=== PATIENT | male | born 1995 | race Caucasian/White ===

== ENCOUNTER → 2024-01-06 | Outpatient (CLI) | payer OTHER | LOC: M PLAIMG 08:07 | PROVIDERS: ATTEND Family Medicine | DX: M25.571 Pain in right ankle and joints of right foot (principal) ==

== ENCOUNTER 2025-01-02 03:48 | Emergency (ER) | payer OTHER ==
[2025-01-02 06:00] LABS: PLATELET COUNT, AUTOMATED 362 10^3/uL (150-450)
[2025-01-02 06:16] LABS: AMPHETAMINES LEVEL URINE NEGATIVE (NEGATIVE); BARBITURATES URINE NEGATIVE (NEGATIVE); BENZODIAZEPINES URINE NEGATIVE (NEGATIVE); CANNABINOIDS URINE NEGATIVE (NEGATIVE); COCAINE METABOLITE URINE NEGATIVE (NEGATIVE); METHADONE URINE NEGATIVE (NEGATIVE); OPIATES URINE NEGATIVE (NEGATIVE); PHENCYCLIDINE URINE NEGATIVE (NEGATIVE)
[2025-01-02 06:19] LABS: ETHYL ALCOHOL (ETHANOL) 0.172 % (0.000-0.010)
[2025-01-02 06:21] LABS: ALT/SGPT 36 U/L (7.0-40); AST/SGOT 24 U/L (<34); CALCIUM LEVEL 9.7 MG/DL (8.5-10.1); CARBON DIOXIDE LEVEL 23 MMOL/L (20-31); CHLORIDE LEVEL 105 MMOL/L (98-107); CREATININE FOR GFR 1.10 MG/DL (0.70-1.30); GLOMERULAR FILTRATION RATE > 90.0 (>60); POTASSIUM SERUM 4.5 MMOL/L (3.5-5.1); SALICYLATE LEVEL < 3.0 MG/DL (<30); SODIUM LEVEL 142 MMOL/L (136-145)
[2025-01-02] MEDS ORDERED: HOME MED LIST COMPLETE! XX SCH (08:10)
[2025-01-02 12:15] VITALS: BP 139/75; TEMP 98; O2SAT 96
== END 2025-01-02 12:17 | disposition home or self-care (01) ==
LOC: M ED 03:48
DX: F43.21 Adjustment disorder with depressed mood (principal); F10.129 Alcohol abuse with intoxication, unspecified; F19.10 Other psychoactive substance abuse, uncomplicated